=== PATIENT | female | born 1985 | race Hispanic/Latino ===

== ENCOUNTER 2017-03-03 17:48 | Emergency (ER) | payer BC, OTHER ==
[2017-03-03 18:17] LABS: #Eosinphils 0.1 thou/uL (0.0-0.7); #Lymphocytes 3.7 thou/uL (1.20-3.40); #Monocytes 0.6 thou/uL (0.11-0.59); #Neutrophils 4.4 thou/uL (1.40-6.50); %Basophils 0.5 % (0.0-1.0); %Eosinophils 1.4 % (0.0-10.0); %Lymphocytes 42.3 % (21.0-51.0); %Monocytes 6.5 % (0.0-10.0); Hematocrit 42.9 % (36.0-47.0); Red Blood Cell (RBC) Count 4.73 mill/uL (4.20-5.40); White Blood Cell (WBC) Count 8.8 thou/uL (4.8-10.8)
[2017-03-03 18:34] LABS: Bilirubin Negative (Negative); Blood, Urine Large (Negative); Glucose, Urine (Dipstick) Negative (Negative); Ketone, Urine Negative (Negative); Nitrite Negative (Negative); Protein, Urine (Dipstick) 100 mg/dL (Neg-Trace); Urobilinogen 0.2 mg/dL (0.2-1.0)
[2017-03-03 18:36] LABS: Bacteria/HPF None Seen HPF (None Seen); Hyaline Casts/LPF 0-3 HYALINE CAST LPF (0-3 Hyaline); RBC/HPF GREATER THAN 50-TNTC HPF (0-3)
[2017-03-03 18:40] LABS: ALT (SGPT) 43 U/L (8-55); AST (SGOT) 20 U/L (5-34); Alkaline Phosphatase 61 U/L (40-150); Anion Gap 13 mmol/L (10-20); BUN (Urea Nitrogen) 10 mg/dL (7.0-18.7); Bilirubin, Total 0.3 mg/dL (0.2-1.2); Calc. Creatinine Clearance 0 mL/min (70-130); Calcium 9.8 mg/dL (7.8-10.44); Carbon Dioxide 28 mmol/L (22-29); Chloride 104 mmol/L (98-107); Estimated GFR-MDRD Greater than 90; Globulin 3.2 g/dL (2.4-3.5); Protein, Total 7.7 g/dL (6.0-8.3)
[2017-03-03] MEDS ORDERED: Ondansetron HCl/PF 4 MG/2 ML Vial ONE (20:44)
[2017-03-03] MEDS ORDERED: Morphine 4 MG/ML VIAL ONE (20:44)
--- NOTE | 2017-03-03 21:57 | ULT ---
PELVIC ULTRASOUND: 03/03/17 HISTORY: Vaginal bleeding. Early . Real time imaging of the pelvis was obtained transabdominally as well as with an endovaginal probe. T his shows a uterus that measures 10.1 cm in length. The endometrium is 9 to 10 mm. The right ovary is normal in appearance. The left ovary is not visualized. DOPPLER EVALUATION WITH SPECTRAL ANALYSIS: Normal flow is shown to the right adnexa. Due to its position, flow is difficult to view. No free flu id seen. IMPRESSION: Slightly thickened endometrium. No definite intrauterine or ectopic . This does not exclude an early intrauterine or ectopic. POS: [facility]
== END 2017-03-03 23:32 | disposition home or self-care (01) ==
LOC: ERS 17:48
DX: O20.0 Threatened abortion (principal); Z3A.01 Less than 8 weeks gestation of pregnancy
CPT/HCPCS: 36415; 36416; 76856; 80053; 81003; 81015; 84702; 85025; 86850; 86900; 86901; 96374; 96375; J2270; J2405

== ENCOUNTER 2017-03-05 21:08 | Emergency (ER) | payer BC | END 2017-03-06 00:25 | disposition home or self-care (01) | LOC: ERS 21:08 | DX: O03.4 Incomplete spontaneous abortion without complication (principal) | CPT/HCPCS: 36415; 84702; 99284; J0696 ==

== ENCOUNTER 2019-12-17 22:02 | Day surgery (SDC) | payer BC, MEDICAID, OTHER ==
[2019-12-17 22:41] VITALS: BP 129/77; TEMP 98.8; BMI 29.9
[2019-12-17] MEDS ORDERED: hydrALAZINE 20 MG/ML VIAL SLOW IVP PRN (23:17)
[2019-12-17] MEDS ORDERED: Ondansetron PF 4 MG/2 ML Vial IVP PRN (23:23)
[2019-12-17] MEDS ORDERED: Butorphanol Tartrate 1 MG/ML VIAL SLOW IVP PRN (23:23)
[2019-12-17] MEDS ORDERED: Butorphanol Tartrate 1 MG/ML VIAL ONE (23:24)
[2019-12-17] MEDS ORDERED: Ondansetron PF 4 MG/2 ML Vial ONE (23:24)
--- NOTE | 2019-12-17 23:27 | PDOC.LDHP ---
Labor and Delivery H&P Chief complaint: contractions HPI: 34YO @ 37.3 WGA presenting for reported contractions. Reports she had a 30 minute episode of lower abdominal pain yesterday evening that lasted ~30 minuted before subsiding on its own. However, around 2000 tonight the pain returned and did not go away so she came in for further evaluation. She describes the pain as sharp & intermittent. Cannot identify any relieving factors but states it worsens when she stands up. Did not try taking anything at home for the pain. She reports associated vaginal pressure but no VB/VD/LOF. + FM. No reported fever/chills, diarrhea, dysuria or hematuria. Does have some N/V but states she has had this the entire . Also has some central lumbar back pain. PCP: Manny Current gestational age (weeks): 37 (37.3) Due date: 01/04/20 Grav: 3 Para: 1 (1011) OB History Details: #1: SAB #2: LTCS @ 40 WGA Current complications: none Abnormal US findings: No Current medications: pre-curt vitamins Previous surgical history: low tranverse CS Allergies/Adverse Reactions: Allergies Allergy/AdvReac Type Severity Reaction Status Date / Time Penicillins Allergy Verified 12/17/19 22:25 Social history: none - Physical Exam Vital signs reviewed and normal: yes General: other (in moderate distress 2/2 pain) Heart: RRR Lungs: nonlabored breathing Abdomen: other (TTP across lower abdomen w/o guarding or rebound; no CVA tenderness noted) Extremeties: no edema FHT: category 1, variability present [place] contractions every: irregular contraction pattern - Vaginal Exam cm dilated: 0 Effacement: 0% Station: -3 - OB Labs Blood type: A RH: positive Antibody Screen: negative HIV: negative RPR: negative HEPSAg: negative 1 hour GCT: negative GBS: negative Urine drug screen: negative Rubella: immune - Plan Plan: other -: 34YO @ 37.3 WGA presenting for evaluation for abdominal pain that she reports is contractions. Abdominal pain in term : - Maternal vitals WNLs & FHT cat 1 strip w/ baseline in 140s & multiple accels w/o decels since arrival. Had a period of contractions that were ~8 minutes apart but now having an irregular pattern. SVE closed/thick/high. Is however TTP all across lower abdomen. Has a h/o prior LTCS so concern for possible scar separation but the fact that mother and fetus are stable currently makes this less likely. Will get basic labwork including a CBC, CMP & straight cath UA to r/o any infectious etiologies that could explain her pain. - Will given IV stadol & zofran for pain & nausea & 1L of LR for hydration in setting of nausea. - Will continue to monitor closely pending lab results. h/o LTCS: - Aware. Patient is JOE for rLTCS @ 40 WGA but per chart review, should patient go into spontaneous labor, desires TOLAC. Term : - Aware, uncomplicated other than AMA & h/o prior section. GBS negative. Dispo: Will continue to monitor patient & fetus closely on L&D pending labwork evaluation. Addendum - Attending - Attending Attestation Date/Time: 12/18/19 0022 I personally evaluated the patient and discussed the management with Dr. Woo. 37 week IUP with h/o prev. C/S scheduled for repeat C/S c/o LAP and nausea. I agree with the History, Examination, Assessment and Plan documented above.
[2019-12-17] MEDS ORDERED: Lactated Ringer's 1,000 ML IV SCH (23:30)
[2019-12-17 23:54] LABS: #Basophils 0.1 thou/uL (0.0-0.2); #Eosinphils 1.1 thou/uL (0.0-0.7); #Lymphocytes 3.1 thou/uL (1.20-3.40); #Monocytes 0.7 thou/uL (0.11-0.59); #Neutrophils 6.2 thou/uL (1.40-6.50); %Basophils 1.1 % (0.0-1.0); %Eosinophils 9.7 % (0.0-10.0); %Lymphocytes 27.8 % (21.0-51.0); %Monocytes 6.2 % (0.0-10.0); %Neutrophils 55.3 % (42.0-75.0); Hemoglobin 13.3 g/dL (12.0-16.0); Mean Corpuscular HGB CONC 34.1 g/dL (32.0-36.0); Mean Corpuscular Hemoglobin 31.4 pg (27.0-31.0); Mean Corpuscular Volume 92.2 fL (78.0-98.0); Mean Platelet Volume 8.9 fL (7.4-10.4); Platelet Count 297 thou/uL (130-400); Red Blood Cell (RBC) Count 4.22 mill/uL (4.20-5.40); White Blood Cell (WBC) Count 11.2 thou/uL (4.8-10.8)
[2019-12-17 23:55] LABS: Bacteria/HPF None Seen HPF (None Seen); Bilirubin Negative (Negative); Blood, Urine Negative (Negative); Clarity Clear (Clear); Glucose, Urine (Dipstick) Normal (Negative); Ketone, Urine Negative (Negative); Leukocyte Negative Leu/uL (Negative); Nitrite Negative (Negative); Protein, Urine (Dipstick) Negative (Neg-Trace); RBC/HPF 0-3 HPF (0-3); Specific Gravity, Urine 1.006 (1.002-1.036); Squamous Epithelial None Seen HPF (0-3); Urobilinogen Normal mg/dL (Less than 2); WBC/HPF 0-3 HPF (0-3)
[2019-12-17 23:57] LABS: Urine Culture Reflex No No
[2019-12-18 00:17] LABS: ALT (SGPT) 12 U/L (8-55); AST (SGOT) 17 U/L (5-34); Albumin 3.7 g/dL (3.5-5.0); Alkaline Phosphatase 135 U/L (40-110); Anion Gap 15 mmol/L (10-20); BUN (Urea Nitrogen) 8 mg/dL (7.0-18.7); Bilirubin, Total 0.3 mg/dL (0.2-1.2); Calc. Creatinine Clearance 151 mL/min (70-130); Calcium 9.2 mg/dL (7.8-10.44); Carbon Dioxide 23 mmol/L (22-29); Chloride 105 mmol/L (98-107); Estimated GFR-MDRD Greater than 90; Globulin 2.9 g/dL (2.4-3.5); Glucose 87 mg/dL (70-105); Potassium 4.3 mmol/L (3.5-5.1); Protein, Total 6.6 g/dL (6.0-8.3); Sodium 139 mmol/L (136-145)
--- NOTE | 2019-12-18 00:34 | PDOC.BPN ---
<Kizzy Woo - Last Filed: 12/18/19 00:32> - Brief Progress Note Encounter Date: 12/18/19 Encounter Time: 00:32 34YO @ 37.4 WGA who presented for evaluation for abdominal pain that she reports is contractions. Abdominal pain in term : - Maternal vitals WNLs & FHT cat 1 strip w/ baseline in 140s & multiple accels w/o decels since arrival. SVE closed/thick/high. - Labwork unremarkable other than a mild leukocytosis of 11.2. - s/p IV stadol & zofran for pain & nausea & 1L of LR for hydration in setting of nausea with much improvement in pain. Suspect most likely MSK pain in , especially with worsening with standing. h/o LTCS: - Aware. Patient is JOE for rLTCS @ 40 WGA but per chart review, should patient go into spontaneous labor, desires TOLAC. Term : - Aware, uncomplicated other than AMA & h/o prior section. GBS negative. Dispo: Will d/c home with labor & return precautions. Instructed to f/u w/ PCP for routine JOE appts. <Erick Tucker - Last Filed: 12/18/19 00:40> Addendum - Attending - Attending Attestation Date/Time: 12/18/19 0039 I personally evaluated the patient and discussed the management with Dr. Woo. Labs normal. Improved with IV fluid, Stadol and Zofran. Home with precautions. I agree with the History, Examination, Assessment and Plan documented above.
== END 2019-12-18 00:38 | disposition home or self-care (01) ==
LOC: L&D/OP 22:02
PROVIDERS: ATTEND Obstetrics & Gynecology
DX: O47.1 False labor at or after 37 completed weeks of gestation (principal); O09.293 Supervision of pregnancy with other poor reproductive or obstetric history, third trimester; O09.523 Supervision of elderly multigravida, third trimester; O34.211 Maternal care for low transverse scar from previous cesarean delivery; Z3A.37 37 weeks gestation of pregnancy; Z88.0 Allergy status to penicillin
CPT/HCPCS: 36415; 80053; 81001; 85025; J0595; J2405

== ENCOUNTER 2019-12-24 15:52 | Day surgery (SDC) | payer OTHER ==
[2019-12-24] MEDS ORDERED: hydrALAZINE 20 MG/ML VIAL SLOW IVP PRN (17:32)
--- NOTE | 2019-12-24 17:42 | HP ---
The patient of Dr. Geovanny Bryant. CHIEF COMPLAINT: Possible contractions with a history of a previous in [facility]. HISTORY OF PRESENT ILLNESS: She is a 34-year-old G3, P2, with [address] [facility]. Her last was in [facility] and the baby's weight was 12 pounds, but there was no evidence according to the record that she was diabetic at that time. She does not have diabetes this . She is here for possible contractions about every 5 to 10 minutes or so. She has good movement. No vaginal bleeding and no leakage of fluid. There was some question about her having high blood pressure in the past, so she is on aspirin now prophylaxis. She denies loss of consciousness, vaginal bleeding, or severe upper abdominal pain. SURGICAL HISTORY: Significant really only for the x1. Remainder of the history was per Dr. Hickman's report, which I have reviewed with him. PHYSICAL EXAMINATION: Cervix was initially closed, thick, and high. Blood pressure is 115/67, pulse is 87, temperature is 97.9. Contractions about every 5 to 6 minutes on tocodynamometer. ASSESSMENT: 1. This is a 34-year-old G3 with a previous x1 in [facility]. The office record was reviewed and it looks like there has been discussion about a possible trial of labor after caesarean, but that the final decision has not yet been made according to the chart. The patient is also apparently for risk-reducing salpingectomy, but I do not see the hospital approval forms in the record. The patient does desire a trial of labor after caesarean if possible. 2. The patient also states some vaginal discharge, which is thick and white with burning, so we have ordered a VP3 for possible candidiasis. 3. We will place in labor observation, give her some IV fluids, and see that makes her feel better and we will recheck her cervix in about 3 hours because we want to give her time to see if she changes. 4. If there is evidence of true labor, we will contact Dr. Bryant to see if she wants to proceed with a trial of labor after caesarean or a repeat section. I am not sure about the prophylactic salpingectomy as I do not have any records, so I will defer that to Dr. Bryant. If she is in labor and needs a and Dr. South is not available, I do not feel comfortable doing the procedure without the proper documentation. Job ID: [id number]
[2019-12-24] MEDS ORDERED: Butorphanol Tartrate 1 MG/ML VIAL SLOW IVP SCH (17:45)
[2019-12-24] MEDS ORDERED: Lactated Ringer's 1,000 ML IV SCH (17:45)
[2019-12-24] MEDS ORDERED: Butorphanol Tartrate 1 MG/ML VIAL ONE (17:46)
--- NOTE | 2019-12-24 18:02 | PDOC.LDHP ---
Labor and Delivery H&P Chief complaint: contractions HPI: 34yo @ 38.3 by LMP presents for contractions starting about 2 hours ago, q5min and not changing. complicated by desired TOLAC. Patient has history of primary c/s in [facility] for breech presentation and found to have 12lb baby at delivery. also complicated by late to care, presentation at 19 weeks. Patient endorses good movement, no LOF or vaginal bleeding. Does endorse thick, white vaginal discharge occurring for past day, with associated vaginal burning. Current gestational age (weeks): 38 (38.3) Due date: 01/04/20 Dating criteria: last menstrual period Grav: 3 Para: 1 (1011) OB History Details: primary c/s for breech presentation in [facility] in 2016. LGA baby at 12 lbs. Records reviewed and no documentation of details in chart. gHTN in prior Current complications: none Past Medical History: none Current medications: pre- vitamins, other (ASA) Previous surgical history: other (c/s pfannenstiel incision. Unknown uterine incision.) Allergies/Adverse Reactions: Allergies Allergy/AdvReac Type Severity Reaction Status Date / Time Penicillins Allergy Verified 12/17/19 22:25 Social history: none - Physical Exam Vital signs reviewed and normal: yes General: NAD, breathing through contractions Heart: RRR Lungs: CTAB Abdomen: gravid Extremeties: no edema FHT: category 1 (accels, no decels,moderate variability) [place] contractions every: 3-5min - Vaginal Exam cm dilated: 0 Effacement: 0% Station: -3 - OB Labs Blood type: A RH: positive Antibody Screen: negative HIV: negative RPR: negative HEPSAg: negative GBS: negative Rubella: immune Additional Labs: Ferritin 14 3T Hb 11.9 Genetic testing + and seen by MFM - Plan Plan: other (Faculty: I have seen the patient at bedside. Plan and CS HX reviewed witb her. After the VP3 returned, I also discussed with her the Dicflucan to be given here.) -: 34yo @ 38.3 by LMP complicated by late care presents for ctx. #Term, SIUP, labor r/o - Cat 1 FHT with ctx q 3-5min - Closed/Th/High at presentation - Will give stadol for pain control and 1L IVF - Continue to monitor FHT and recheck SVE in 2-3 hours to assess labor progression - Desired TOLAC, patient states her and Dr. Bryant had not decided definitively on repeat c/s vs TOLAC. - GBS negative #Vaginal discharge - thick, white discharge with vaginal burning - Will obtain VP3 #Iron Def Anemia - Ferritin 14, Hb 11.9 in 3T PCP: Manny Dispo: Kate regularly, moderate pain. Closed/thick/high on SVE. Will give IVF and Stadol, obtain VP3. Monitor and recheck in 2-3 hours to assess if in labor. Above documentation and plan discussed with Dr. Umaña who agrees with plan.
[2019-12-24] MEDS ORDERED: Fluconazole 100 MG TAB PO SCH (19:15)
--- NOTE | 2019-12-24 19:53 | PDOC.BPN ---
<Jose Crow - Last Filed: 12/24/19 19:49> - Brief Progress Note Encounter Date: 12/24/19 Encounter Time: 19:00 After IVF and Stadol patient pain much improve and patient resting comfortably. FHT demonstrates Cat 1 with accels, no deccels and contractions have spaced to q10min. Repeat SVE after 2.5 hours was unchanged at closed/th/high. VP3 returned positive for Kinjal. Given 1 dose fluconazole. Bedside sono right oblique lie. Discussed findings with patient and at bedside. No evidence of labor progression at this time. Pain improved, contractions decreased. Treated candidal vulvovaginitis. Labor precautions and return precautions given. Told to follow up with PCP Thursday. Patient voiced understanding and agreement of discharge plan, all questions answered. Patient discharge home. Above documentation and plan discussed with Dr. Umaña who agrees with plan. <August Umaña - Last Filed: 12/24/19 21:43> - Brief Progress Note Faculty: Patient seen at bedside and Q&A done by me with her. Agree with plan.
[2019-12-25] MEDS ORDERED: FLU VACC QS2020-21(6MOS UP)/PF 60 MCG/0.5 ML SYRINGE IM ONE (09:00)
== END 2019-12-24 19:30 | disposition home or self-care (01) ==
LOC: L&D/OP 15:52
PROVIDERS: ATTEND Obstetrics & Gynecology
DX: O47.1 False labor at or after 37 completed weeks of gestation (principal); O98.813 Other maternal infectious and parasitic diseases complicating pregnancy, third trimester; B37.9 Candidiasis, unspecified; O99.013 Anemia complicating pregnancy, third trimester; D50.9 Iron deficiency anemia, unspecified; O99.891 Other specified diseases and conditions complicating pregnancy; N89.8 Other specified noninflammatory disorders of vagina; O34.219 Maternal care for unspecified type scar from previous cesarean delivery; Z3A.38 38 weeks gestation of pregnancy; Z88.0 Allergy status to penicillin
CPT/HCPCS: 87480; 87510; 87660; 96360; 96375; 99285; J0595

== ENCOUNTER 2019-12-30 08:03 | Outpatient (CLI) | payer OTHER, BC ==
[2019-12-30 14:58] LABS: SARS-CoV-2 MS2 Positive; SARS-CoV-2 N Gene Negative; SARS-CoV-2 S Gene Negative; SARS-CoV-2 by NAA Not Detected (NotDetected); SARS-CoV-2 orf1ab Negative
== END 2019-12-30 08:04 | disposition home or self-care (01) ==
LOC: LABBT 08:03
PROVIDERS: ATTEND Obstetrics & Gynecology
DX: Z20.828 Contact with and (suspected) exposure to other viral communicable diseases (principal)
CPT/HCPCS: 87635; U0003

== ENCOUNTER 2019-12-30 16:32 | Day surgery (SDC) | payer OTHER, BC ==
[2019-12-30 17:24] VITALS: BP 119/80; BMI 34.0
[2019-12-30 17:26] VITALS: TEMP 98.2
[2019-12-30] MEDS ORDERED: hydrALAZINE 20 MG/ML VIAL SLOW IVP PRN (18:56)
--- NOTE | 2019-12-30 18:56 | PDOC.LDHP ---
Labor and Delivery H&P Chief complaint: other (vaginal bleeding) HPI: 34 yo @ 39.2wks (EDC 01/04/2020) presents to L&D for evaluation of vaginal spotting throughout today. She has noted several times when she wiped more mucus than usual and pink tinged mucus. One time around 3 pm the mucus was much more red which prompted her to come in. She denies loss of fluid, vaginal bleeding other than when wiping, vaginal discharge, decreased movement, or painful contractions. She has had some lower abdominal contractions that were bearable and occasional lower back pains. Current gestational age (weeks): 39 (2d) Due date: 01/04/20 Dating criteria: last menstrual period, first trimester ultrasound Grav: 3 Para: 1 OB History Details: H/o prior for LGA baby. Current complications: none Abnormal US findings: No Past Medical History: h/o HTN Current medications: pre- vitamins Previous surgical history: low tranverse CS Allergies/Adverse Reactions: Allergies Allergy/AdvReac Type Severity Reaction Status Date / Time Penicillins Allergy Verified 12/30/19 17:14 Social history: none - Physical Exam Vital signs reviewed and normal: yes General: NAD, resting Heart: RRR Lungs: CTAB Abdomen: NTTP Extremeties: no edema FHT: category 1 [place] contractions every: 5-6 min - Vaginal Exam cm dilated: 1 Effacement: 0% Station: -3 - OB Labs Blood type: A RH: positive Antibody Screen: negative GBS: negative - Assessment Term intrauterine - Plan -: Term , not in labor -NST reactive. -Bedside sono revealed baby in cephalic position. -SVE showed 1cm dilation, no effacement, and -3 station. -Tocometer showed contractions q5-6 minutes, however patient was not always feeling them. Patient has repeat scheduled for 01/04/20. We counseled her on s/s of labor and recommended that she follow up early next week with Dr. Bryant. Per review of records, it appears that Dr. Bryant was ok with her laboring if she spontaneously went into labor prior to 40wks EGA. Her VS were stable and she is not in labor. She was discharged home with labor precautions. She was understanding and in agreement. This plan was discussed with Dr. Umaña.
--- NOTE | 2019-12-30 19:48 | HP ---
TIME OF INVESTIGATION: 1845 hours. LOCATION: Labor and Delivery, triage bed B. CHIEF COMPLAINT: Blood tinged mucousy discharge, but no real contractions. The patient of Dr. Bryant. This patient has a history of a previous for macrosomia. HISTORY OF PRESENT ILLNESS: In brief, this is a 34-year-old Nauruan-speaking female, who is a 3, para 1, who is at 39 weeks and 2 days with complaint of spotting and this premenstrual type of mucousy discharge. She denies vaginal bleeding, gush of water, decreased movement, or regular contractions. She denies recent COVID symptoms. She has good movement. Her history is significant for previous for a child, who was 12 pounds, but she denies diabetes or other issues with this . REVIEW OF SYSTEMS: Complete review of systems was checked and is otherwise negative unless specified in the HPI. PAST SURGICAL HISTORY: . OB HISTORY: Previous x1. She had discussed per her verbal report with Dr. Bryant. As of right now, the plan is to have a repeat , which is already scheduled for 01/03, unless she goes into labor before where Dr. Bryant said that she was allowed for a vaginal delivery, although I do not have any of those records with me. SOCIAL HISTORY: Negative. FAMILY HISTORY: Noncontributory. ALLERGIES: TO PENICILLIN, BUT SHE IS UNSURE OF WHAT THAT ACTUALLY CAUSES. PHYSICAL EXAMINATION: GENERAL: She is in no acute distress. VITAL SIGNS: Stable. I reviewed her blood pressures and they are one-teens over 70s. She is normotensive and afebrile. She does not appear to be clinically laboring at this time. ABDOMEN: Soft and nontender. Cervical exam was performed by Dr. Lynn, who was resident on-call with ca. Her cervix was fingertip and there was no gross evidence of bleeding or leakage of fluid. Bedside ultrasound was performed with me and Dr. Lynn and we confirmed that the baby is vertex. On monitor, heart tones were reviewed and baby's heart tracing is reactive. There are rare contractions on tocodynamometer anywhere from every 6 to 12 minutes or so, but no distinct pattern. ASSESSMENT: This is a patient who has advanced maternal age at 34 who has had previous x1 with a previous weight of 12 pounds, but this birthweight does not seem to be that large. It is my estimate that is around 8 pounds or so clinically by Alejandro'damaso. She is here for threatened labor, but there is no evidence of ruptured membranes or true cervical change at this time. She has a scheduled for next week. PLAN: 1. Reassurance given. 2. Strict labor and delivery precautions given to her by me in Nauruan. 3. I discussed the current situation and evaluation with her and her in Nauruan. 4. No acute needs at this time. Job ID: [id number]
== END 2019-12-30 19:08 | disposition home or self-care (01) ==
LOC: L&D/OP 16:32
PROVIDERS: ATTEND Obstetrics & Gynecology
DX: O46.93 Antepartum hemorrhage, unspecified, third trimester (principal); O34.211 Maternal care for low transverse scar from previous cesarean delivery; O09.523 Supervision of elderly multigravida, third trimester; Z3A.39 39 weeks gestation of pregnancy; Z88.0 Allergy status to penicillin; Z20.828 Contact with and (suspected) exposure to other viral communicable diseases
CPT/HCPCS: 99283

== ENCOUNTER 2020-01-01 17:52 | Inpatient (IN) | payer BC, OTHER, SELFPAY ==
[~2020-01-01 17:52] MED LIST: Bupivacaine PF 0.5% 30 ML VIAL ONE; Bupivacaine/Epinephrine 0.25% 30 ML VIAL ONE; Lidocaine 2% MPF 10 ML AMP (For Epidural Use) ONE
[2020-01-01] MEDS ORDERED: hydrALAZINE 20 MG/ML VIAL SLOW IVP PRN ×2 (17:56→20:28)
[2020-01-01 18:34] VITALS: BMI 34.0
--- NOTE | 2020-01-01 18:49 | PDOC.LDHP ---
Labor and Delivery H&P Chief complaint: contractions, loss of fluid HPI: 34 y/o at 39w4d, patient of Dr. Bryant, presents with regular ctx and leaking fluid. Denies VB, or decreased FM. Has hx of primary LTCS in [place], would like to TOLAC if she goes into labor. ROS neg for HEENT, cv, pulm, gi, gu, neuro, psych, skin, musculoskeletal or constitutional symptoms other than mentioned above. OB History Details: 1 prior LTCS in [place] 1 SAB Current complications: none Past Medical History: None Current medications: pre-curt vitamins Previous surgical history: low tranverse CS Allergies/Adverse Reactions: Allergies Allergy/AdvReac Type Severity Reaction Status Date / Time Penicillins Allergy Verified 12/30/19 17:14 Social history: none - Physical Exam Vital signs reviewed and normal: yes General: NAD, resting Lungs: nonlabored breathing Abdomen: gravid Extremeties: no edema FHT: category 1 (140s, mod variability, + accels, no decels) [place] contractions every: 5-7 mins - Vaginal Exam cm dilated: 1 (changed to 2-3/75/-3) Effacement: 25% Station: -3 - OB Labs Blood type: A RH: positive Antibody Screen: negative HIV: negative RPR: negative HEPSAg: negative 1 hour GCT: negative GBS: negative Rubella: immune - Assessment L&D Assessment: term patient in labor - Plan Plan: admit to L&D, labor augmentation if indicated, informed consent obtained, anesthesia consult for pain management (if desired) -: Desires TOLAC
[2020-01-01 19:05] LABS: Amnisure Internal Control QC ACCEPTABLE (ACCEPTABLE); Amnisure Test No Membranes Rupture (No Rupture)
[2020-01-01] MEDS ORDERED: Ondansetron PF 4 MG/2 ML Vial IVP PRN (20:28)
[2020-01-01] MEDS ORDERED: Acetaminophen 500 MG TAB PO PRN (20:28)
[2020-01-01] MEDS ORDERED: Butorphanol Tartrate 1 MG/ML VIAL SLOW IVP PRN (20:28)
[2020-01-01] MEDS ORDERED: Misoprostol 200 MCG TAB PR PRN (20:28)
[2020-01-01] MEDS ORDERED: Carboprost 250 MCG/ML AMP IM PRN (20:28)
[2020-01-01] MEDS ORDERED: NS / Oxytocin 40 units/1000ml 1,000 ML IV PRN (20:28)
[2020-01-01] MEDS ORDERED: Lidocaine 1% (PF) 30 ML VIAL SC PRN (20:28)
[2020-01-01] MEDS ORDERED: Promethazine HCl 25 MG/ML VIAL IM PRN (20:28)
[2020-01-01] MEDS ORDERED: Ibuprofen 800 MG TAB PO PRN (20:28)
[2020-01-01] MEDS ORDERED: Diphenoxylate HCl/Atropine Tablet PO PRN ×2 (20:28)
[2020-01-01] MEDS ORDERED: Methylergonovine 0.2 MG/ML VIAL IM PRN (20:28)
[2020-01-01] MEDS ORDERED: HYDROcodone/Acetaminophen 5/325 mg Tablet PO PRN ×2 (20:28)
[2020-01-01] MEDS: Lactated Ringer's 1,000 ML IV SCH (20:30)
[2020-01-01 21:05] LABS: Mean Corpuscular HGB CONC 33.5 g/dL (32.0-36.0); Mean Corpuscular Hemoglobin 31.1 pg (27.0-31.0); Mean Corpuscular Volume 92.9 fL (78.0-98.0); Mean Platelet Volume 9.5 fL (7.4-10.4); Platelet Count 285 thou/uL (130-400); RBC Distribution Width 13.4 % (11.5-14.5); Red Blood Cell (RBC) Count 4.51 mill/uL (4.20-5.40)
[2020-01-01 21:41] LABS: Syphilis Antibody Nonreactive (Nonreactive); Syphilis Antibody Index 0.02 S/CO (<1.00 Non-Reactive)
[2020-01-02] MEDS ORDERED: Fentanyl 4 mcg/Bup 0.1% Cadd 100 ML ONE ×3 (00:16→15:44)
[2020-01-02 01:21] LABS: HBSAg Index 0.13 S/CO (0-0.99); Hep B Surf Ag Non-Reactive S/CO (NonReactive)
[2020-01-02] MEDS ORDERED: Promethazine HCl 25 MG/ML VIAL IM PRN ×4 (01:29→23:30)
[2020-01-02] MEDS ORDERED: EPHEDRINE 25 MG/5 ML SYRINGE SLOW IVP PRN (01:29)
[2020-01-02] MEDS ORDERED: Naloxone HCl 0.4 mg/ml Vial IVP PRN ×4 (01:29→16:56)
[2020-01-02] MEDS ORDERED: Ondansetron PF 4 MG/2 ML Vial IVP PRN ×4 (01:29→23:30)
[2020-01-02] MEDS ORDERED: diphenhydrAMINE 50 MG/ML VIAL IVP PRN ×3 (01:29→23:30)
[2020-01-02] MEDS ORDERED: Acetaminophen 325 MG TAB PO PRN (01:29)
[2020-01-02] MEDS ORDERED: Lactated Ringer's 500 ML IV PRN (01:29)
[2020-01-02] MEDS ORDERED: Communication Order-Pharmacy FS SCH ×2 (01:30→17:00)
[2020-01-02] MEDS ORDERED: Fentanyl 4 mcg/Bupivacaine 0.1% Cassette 100 ML EPIDURAL SCH (01:30)
[2020-01-02] MEDS: Lactated Ringer's 1,000 ML IV SCH ×2 (05:00→16:09)
[2020-01-02] MEDS ORDERED: NS w/ Oxytocin 10 units 500 ML IVPB SCH (09:30)
[2020-01-02] MEDS ORDERED: Azithromycin 500 MG VIAL ONE (15:45)
[2020-01-02] MEDS ORDERED: Bicitra 30 ML UDCUP ONE (15:45)
--- NOTE | 2020-01-02 15:49 | PDOC.LDPN ---
Labor & Delivery Progress Note - Subjective Subjective: painful contractions - Objective Vital signs reviewed and normal: yes General: breathing through contractions Dilation: 5 Effacement: 75% Station: -2 FHT: category 1 - Assessment (1) 39 weeks gestation of Code(s): Z3A.39 - 39 WEEKS GESTATION OF Current Visit: Yes Status: Acute (2) Previous section Code(s): Z98.891 - HISTORY OF UTERINE SCAR FROM PREVIOUS SURGERY Current Visit: Yes Status: Acute (3) Arrest of dilation, delivered, current hospitalization Code(s): O62.1 - SECONDARY UTERINE INERTIA Current Visit: Yes Status: Acute Plan: other -: Unchanged dilation or station despite pitocin and position change. Discussed plan for RCS when OR available.
[2020-01-02] MEDS ORDERED: Clindamycin/D5W 900 mg/50 ml Premix Bag ONE (15:52)
[2020-01-02] MEDS ORDERED: Clindamycin/D5W 900 MG in Premix Bag 1 BAG IVPB SCH (16:00)
[2020-01-02] MEDS ORDERED: Bicitra 30 ML UDCUP PO SCH (16:00)
[2020-01-02] MEDS ORDERED: Gentamicin Sulfate 120 MG in Premix Bag 1 BAG IVPB SCH (16:00)
[2020-01-02] MEDS ORDERED: Fentanyl 100 MCG/2 ML VIAL ONE (16:01)
[2020-01-02] MEDS ORDERED: ePHEDrine 50 MG/ML VIAL ONE (16:02)
[2020-01-02] MEDS ORDERED: PHENYLEPHRINE-NS 100 MCG/ML 10 ML SYRINGE ONE (16:02)
[2020-01-02] MEDS ORDERED: Ketorolac Tromethamine 30 MG/ML VIAL ONE (16:02)
[2020-01-02] MEDS ORDERED: Oxytocin 10 UNITS/ML VIAL ONE (16:02)
[2020-01-02] MEDS ORDERED: Ondansetron PF 4 MG/2 ML Vial ONE (16:02)
[2020-01-02] MEDS ORDERED: EPINEPHrine 1 MG/ML AMP ONE (16:06)
[2020-01-02] MEDS ORDERED: Lidocaine 2% MPF 10 ML AMP (For Epidural Use) ONE (16:24)
[2020-01-02] MEDS ORDERED: Promethazine HCl 25 MG SUPP PR PRN ×2 (16:56→23:30)
[2020-01-02] MEDS ORDERED: L&D-Morphine 4 MG/ML VIAL SLOW IVP PRN (16:56)
[2020-01-02] MEDS ORDERED: HYDROmorphone 2 MG/ML VIAL SLOW IVP PRN (16:56)
[2020-01-02] MEDS ORDERED: Meperidine HCl/PF 25 MG/ML VIAL SLOW IVP PRN (16:56)
[2020-01-02] MEDS ORDERED: Ondansetron HCl/PF 4 MG/2 ML Vial IVP PRN (16:56)
[2020-01-02] MEDS ORDERED: Naloxone HCl 0.4 mg/ml Vial IV PRN ×4 (16:56→23:30)
--- NOTE | 2020-01-02 17:02 | PDOC.OPDEL ---
OB Operative/Delivery Note Delivery Dr/Surgeon: Manny Assist: Mily Pre-Delivery Diagnosis: active labor (previous CS, arrest of dilation @ 5cm) Procedure/Post Delivery Dx: repeat low transverse CS (w vacuum assistance to delivery head) Weeks gestation: 39 Anesthesia: epidural - Findings A Sex: female - Additional Findings/Plan Placenta delivered: spontaneous findings: low transverse hysterotomy without extension, normal uterus, normal tubes, other (uterine atony relieved w methergine and pitocin) Estimated blood loss: 600ml Compilations/Other Findings: head not engaged, delivered w vacuum assistance Post delivery plan: routine recovery
[2020-01-02] MEDS ORDERED: Methylergonovine 0.2 MG/ML VIAL ONE (17:11)
[2020-01-02] MEDS ORDERED: Methylergonovine 0.2 MG/ML VIAL IM SCH (18:00)
[2020-01-02] MEDS ORDERED: Meperidine HCl/PF 25 MG/ML VIAL ONE (19:19)
[2020-01-02] MEDS ORDERED: diphenhydrAMINE 25 MG CAP PO PRN (19:39)
[2020-01-02] MEDS ORDERED: hydrALAZINE 20 MG/ML VIAL SLOW IVP PRN (19:39)
[2020-01-02] MEDS ORDERED: Lanolin Ointment 7 GM TUBE TOP PRN (19:39)
[2020-01-02] MEDS ORDERED: Adacel (T-DAP) 0.5 ML SYRINGE IM ONE (19:39)
[2020-01-02] MEDS ORDERED: Simethicone Chewable 80 MG TAB PO PRN (19:39)
[2020-01-02] MEDS ORDERED: Bisacodyl 10 MG SUPP PR PRN (19:39)
[2020-01-02] MEDS ORDERED: Ibuprofen 800 MG TAB PO SCH (22:00)
[2020-01-02] MEDS: Ferrous Sulfate 325 MG TAB PO SCH (22:59)
[2020-01-02] MEDS: Docusate Calcium (SURFAK) 240 MG CAP PO SCH (22:59)
[2020-01-02] MEDS ORDERED: Ketorolac Tromethamine 30 MG/ML VIAL IVP SCH (23:00)
[2020-01-02] MEDS ORDERED: Hydrocerin (Eucerin) Cream 120 gm Jar TOP PRN (23:30)
[2020-01-02] MEDS ORDERED: HYDROcodone/Acetaminophen 5/325 mg Tablet PO PRN ×2 (23:30)
--- NOTE | 2020-01-03 00:34 | OP ---
DATE OF PROCEDURE: 01/02/2020 PREOPERATIVE DIAGNOSES: 1. Previous section, desires trial of labor. 2. Arrest of dilation at 5 cm. 3. head not engaged and no descent. POSTOPERATIVE DIAGNOSES: 1. Previous section, desires trial of labor. 2. Arrest of dilation at 5 cm. 3. head not engaged and no descent. PROCEDURE PERFORMED: Repeat low-transverse section. SALES FLOOR ASSOCIATE: residential counselor, . COMPLICATIONS: None. ANESTHESIA: Epidural. ESTIMATED BLOOD LOSS: 600 mL. QUANTITATIVE BLOOD LOSS: Pending at the time of dictation. OPERATIVE FINDINGS: 1. Low-transverse hysterotomy without extension. 2. Normal-appearing uterus, tubes, and ovaries bilaterally. 3. Uterine atony relieved with Methergine and Pitocin. 4. Female , vigorous once at the warmer. and weight pending at the time of dictation. 5. Normal-appearing placenta, three-vessel cord. 6. Surgical site hemostatic. PROCEDURE IN DETAIL: The patient was taken back to the OR with IV fluids running and Lund catheter and epidural that were previously placed. When she was in the OR, the abdomen was prepped and draped in normal fashion for section. The surgeons were gowned and gloved. Anesthesia was tested and found to be adequate. A Pfannenstiel skin incision was made with a scalpel. Skin incision was carried down through subcutaneous tissue to the fascia. Once the fascia was reached, it was incised in the midline and extended superolaterally using curved Matos scissors. Pippa clamps were placed at the superior border of the fascia, which was sharply and bluntly dissected off the rectus abdominis muscles in both caudad and cephalad directions allowing adequate space for delivery of the . The rectus muscles were bluntly entered and in the midline and the peritoneum was stretched. An David O retractor was placed in the peritoneal cavity for retraction, visualization, and protection of the wound. A bladder flap was created and the bladder was dissected away from the planned hysterotomy site. A low-transverse hysterotomy was made with a scalpel. It was extended using a Singh maneuver. The infant's head was noted to be in an extended position, the head was manipulated to the hysterotomy and flexed. However, despite gentle pressure on the uterine fundus, it was not able to stay flexed and engaged at the hysterotomy. A suction vacuum cup was placed over the 's head and the was then easily delivered through the hysterotomy with gentle traction. Once the infant was delivered, the suction cup was removed. The nose and mouth were suctioned and the cord was doubly clamped and cut. The was handed off to special care nurse in attendance. Cord blood was collected. The placenta was delivered. The uterus was exteriorized, massaged to firm and cleared of clot and debris. The uterus was returned to the abdominal cavity, inspected with no extensions noted. The hysterotomy was closed with Monocryl suture in a running locked fashion. A 2nd layer closure was performed. There was a small area of bleeding in the left corner of the hysterotomy, which was controlled with two separate interrupted sutures of Monocryl. Once hemostasis was noted and the uterus was noted to be firm, the hysterotomy and paracolic gutters were irrigated and dry. The hysterotomy was inspected again with no areas of bleeding noted. The David O retractor was removed from the abdominal cavity. The peritoneal muscle and fascia were inspected and no areas of bleeding were noted. The rectus fascia was reapproximated from corner to corner with PDS suture in a running fashion. The subcutaneous layer was copiously irrigated and dried. Any small areas of bleeding were controlled with Bovie cauterization. The subcutaneous layer was reapproximated with plain gut suture. The skin was closed with 4-0 Monocryl and dressed with Dermabond dressing. The uterus again palpated firm at the end of the case. There were no complications. The counts were correct x2. Job ID: [id number] [id number]
[2020-01-03] MEDS: Ketorolac Tromethamine 30 MG/ML VIAL IVP PRN ×3 (00:38→13:05)
[2020-01-03] MEDS: Lactated Ringer's 1,000 ML IV SCH (00:43)
[2020-01-03] MEDS ORDERED: HYDROcodone/Acetaminophen 5/325 mg Tablet PO PRN ×3 (05:00)
[2020-01-03 05:23] LABS: Hemoglobin 11.4 g/dL (12.0-16.0); Mean Corpuscular HGB CONC 32.6 g/dL (32.0-36.0); Mean Corpuscular Hemoglobin 30.6 pg (27.0-31.0); Mean Corpuscular Volume 93.7 fL (78.0-98.0); Mean Platelet Volume 8.8 fL (7.4-10.4); Platelet Count 247 thou/uL (130-400); RBC Distribution Width 13.5 % (11.5-14.5); Red Blood Cell (RBC) Count 3.74 mill/uL (4.20-5.40); White Blood Cell (WBC) Count 14.7 thou/uL (4.8-10.8)
[2020-01-03] MEDS: HYDROcodone/Acetaminophen 5/325 mg Tablet PO PRN ×2 (05:48→20:26)
[2020-01-03] MEDS: Docusate Calcium (SURFAK) 240 MG CAP PO SCH ×2 (08:54→20:27)
[2020-01-03] MEDS: Ferrous Sulfate 325 MG TAB PO SCH ×2 (08:54→23:41)
[2020-01-03] MEDS: Prenatal Vitamin 1 TAB PO SCH (08:54)
--- NOTE | 2020-01-03 11:02 | PDOC.PP ---
Post Progress Note Post Day #: 1 Subjective: doing well, pain-waiting for PO breakfast and pain meds, mild pain, hasn't amubulated PO intake tolerated: yes Flatus: yes Ambulation: yes Vital Signs (12 hours) Temp Pulse Resp BP Pulse Ox 01/03/20 07:52 98.2 F 78 20 99/55 L 96 01/03/20 05:43 98.9 F 75 16 94/59 L 98 01/03/20 00:28 98.8 F 75 16 99/62 Weight Weight 180 lb - Physical Examination General: NAD Respiratory: non-labored breathing Abdominal: appropriately TTP (w mild tympany noted) Fundus firm & at: below umb Skin: CS incision dry & intact (dressing CDI) Psychiatric: A&Ox3, normal affect Result Diagrams: 01/03/20 05:15 Additional Labs: Post Labs Hep Bs Antigen Non-Reactive S/CO (NonReactive) 01/01/20 20:48 Blood Type A POSITIVE 01/01/20 20:48 (1) 39 weeks gestation of Code(s): Z3A.39 - 39 WEEKS GESTATION OF Status: Acute (2) Previous section Code(s): Z98.891 - HISTORY OF UTERINE SCAR FROM PREVIOUS SURGERY Status: Acute (3) Arrest of dilation, delivered, current hospitalization Code(s): O62.1 - SECONDARY UTERINE INERTIA Status: Acute (4) delivery delivered Code(s): O82 - ENCOUNTER FOR DELIVERY WITHOUT INDICATION Status: Acute - Assessment/Plan POD1 sp RCS after JONI. Doing well, advance orders and post op goals reviewed.
[2020-01-03] MEDS: Ibuprofen 800 MG TAB PO SCH (20:27)
[2020-01-04] MEDS: Ibuprofen 800 MG TAB PO SCH (05:31)
[2020-01-04] MEDS: Ferrous Sulfate 325 MG TAB PO SCH (07:23)
[2020-01-04 07:51] VITALS: BP 91/53; TEMP 98.5
[2020-01-04] MEDS: Prenatal Vitamin 1 TAB PO SCH (08:50)
[2020-01-04] MEDS: Docusate Calcium (SURFAK) 240 MG CAP PO SCH (08:50)
[2020-01-04] MEDS: HYDROcodone/Acetaminophen 5/325 mg Tablet PO PRN (08:50)
--- NOTE | 2020-01-04 10:03 | PDOC.PP ---
Post Progress Note Post Day #: 2 Subjective: pt complains of pain when she eats-states food isn't warm enough (like at home) and she shivers and that causes pain. Outside of eating she reports her pain is well controlled. Breast and bottle feeding. Would like an abdominal binder and to go home today. PO intake tolerated: yes Flatus: yes Ambulation: yes Vital Signs (12 hours) Temp Pulse Resp BP Pulse Ox 01/04/20 07:50 98.5 F 65 20 91/53 L 97 01/04/20 05:34 97.9 F 73 14 96/51 L 01/04/20 01:12 98.7 F 65 16 107/59 L Weight Weight 180 lb - Physical Examination General: NAD Respiratory: non-labored breathing Abdominal: no distention Skin: CS incision dry & intact Neurological: no gross focal deficits Psychiatric: A&Ox3, normal affect Result Diagrams: 01/03/20 05:15 Additional Labs: Post Labs Hep Bs Antigen Non-Reactive S/CO (NonReactive) 01/01/20 20:48 Blood Type A POSITIVE 01/01/20 20:48 (1) 39 weeks gestation of Code(s): Z3A.39 - 39 WEEKS GESTATION OF Status: Acute (2) Previous section Code(s): Z98.891 - HISTORY OF UTERINE SCAR FROM PREVIOUS SURGERY Status: Acute (3) Arrest of dilation, delivered, current hospitalization Code(s): O62.1 - SECONDARY UTERINE INERTIA Status: Acute (4) delivery delivered Code(s): O82 - ENCOUNTER FOR DELIVERY WITHOUT INDICATION Status: Acute - Assessment/Plan POD2, plan for DC home today. MEdication use reviewed.
== END 2020-01-04 13:56 | disposition home or self-care (01) | DRG 788 ==
LOC: L&D/OP 17:52 → L&D 19:53 → 3SE 01-02 20:11
PROVIDERS: ADMIT Obstetrics & Gynecology; ATTEND Obstetrics & Gynecology
PROC: 10D00Z1 Extraction of Products of Conception, Low, Open Approach (ICD-10-PCS; principal; 2020-01-02)
DX: O34.211 Maternal care for low transverse scar from previous cesarean delivery (principal); O62.1 Secondary uterine inertia; Z3A.39 39 weeks gestation of pregnancy; Z37.0 Single live birth; Z88.0 Allergy status to penicillin
CPT/HCPCS: 36415; 51702; 76815; 84112; 85027; 86780; 86850; 86900; 86901; 87340; 99285; J0171; J1885; J2001; J2175; J2210; J2270; J2405; J2590; J3010; J3490; S0020

== ENCOUNTER 2022-05-09 20:34 | Emergency (ER) | payer OTHER, SELFPAY ==
[2022-05-09] MEDS ORDERED: Dexamethasone 4 mg/ml Vial ONE (21:37)
== END 2022-05-09 22:04 | disposition home or self-care (01) ==
LOC: ERS 20:34
DX: L71.9 Rosacea, unspecified (principal); H00.036 Abscess of eyelid left eye, unspecified eyelid
CPT/HCPCS: 96372; 99283; J1100